=== PATIENT | male | born 1995 | race Caucasian/White ===

== ENCOUNTER 2021-12-27 00:05 | Emergency (ER) | payer BC ==
[2021-12-27 00:13] VITALS: BP 150/88; PULSE 93; RESP 20; TEMP 98.3
--- NOTE | 2021-12-27 00:46 | ED ---
Upper Extremity HPI - General Chief Complaint: Extremity Injury, Upper Stated Complaint: Right Arm Injury Time Seen by Provider: 12/27/21 00:34 Source: patient Mode of arrival: ambulatory Limitations: no limitations - History of Present Illness Initial Comments: This is a pleasant 26-year-old male who presents to emergency department after sustaining an injury to his right wrist and forearm [facility]. Patient has pain which is mainly at the wrist, exacerbated by movement, alleviated by rest, no distal or proximal radiation. No distal paresthesias. Patient denies any other injuries. Injury was splinted on site. Patient denies any other significant past medical history. MD Complaint: Injury to:: right, arm - Related Data Previous Rx's Medication Instructions Recorded Acetaminophen [Tylenol] 500 mg PO Q4-6H PRN #24 tab 12/27/21 Allergies Allergy/AdvReac Type Severity Reaction Status Date / Time No Known Allergies Allergy Verified 12/27/21 00:13 Review of Systems ROS Statement: Those systems with pertinent positive or pertinent negative responses have been documented in the HPI. ROS Other: All systems not noted in ROS Statement are negative. Past Medical History Past Medical History: No Reported History History of Any Multi-Drug Resistant Organisms: None Reported Past Surgical History: No Surgical Hx Reported Past Psychological History: No Psychological Hx Reported Smoking Status: Current every day smoker Past Alcohol Use History: Occasional Past Drug Use History: None Reported General Exam Limitations: no limitations General appearance: alert, in no apparent distress Head exam: Present: atraumatic, normocephalic, normal inspection Eye exam: Present: normal appearance, PERRL, EOMI. Absent: scleral icterus, conjunctival injection, periorbital swelling ENT exam: Present: normal exam, mucous membranes moist Neck exam: Present: normal inspection. Absent: tenderness, meningismus, lymphadenopathy Respiratory exam: Present: normal lung sounds bilaterally. Absent: respiratory distress, wheezes, rales, rhonchi, stridor Cardiovascular Exam: Present: regular rate, normal rhythm, normal heart sounds. Absent: systolic murmur, diastolic murmur, rubs, gallop, clicks GI/Abdominal exam: Present: soft, normal bowel sounds. Absent: distended, tenderness, guarding, rebound, rigid Extremities exam: Present: normal capillary refill Right Upper Arm exam: Present: normal inspection. Absent: tenderness Elbow exam: Present: normal inspection, full ROM. Absent: tenderness Forearm Wrist exam: Present: tenderness, tenderness over anatomical snuff box. Absent: full ROM, swelling, abrasion, laceration, ecchymosis, deformity, crepitus, dislocation, erythema Hand Wrist exam: Present: normal inspection, full ROM. Absent: tenderness, swelling, abrasion Vascular: Absent: vascular compromise, Pallo (Radiology also as are intact. Capillary refill less than 2 seconds. Distal sensation intact. Full range of motion and strength regarding all phalanges, hand. Limited range of motion at the wrist.), normal capillary refill, pulse deficit radial art, pulse deficit ulnar art, pulse deficit brachial art Back exam: Present: normal inspection Neurological exam: Present: alert, oriented X3, CN II-XII intact Psychiatric exam: Present: normal affect, normal mood Skin exam: Present: warm, dry, intact, normal color. Absent: rash Course Vital Signs 12/27/21 00:11 Temperature 98.3 F Pulse Rate 93 Respiratory 20 Rate Blood Pressure 150/88 O2 Sat by Pulse 98 Oximetry Procedures - Orthopedic Splinting/Casting Injury #1 Side: right Upper Extremity Injury Location: wrist Upper Extremity Immobilizer: thumb spica Additional Comments: Distal neurovascular status intact both pre-and post-application. Medical Decision Making - Medical Decision Making Isolated injury at the right wrist. Thumb spica splint applied. Distal neurovascular status intact. Patient counseled on splint care. Patient counseled on signs and symptoms of compartment syndrome. Orthopedic follow-up given. Patient did have tenderness over the anatomical snuffbox raising concern about possible occult scaphoid fracture. I did review these films myself. Patient was told to return to the ER for any signs or symptoms worsen. Told to return immediately if any other problems arise. All questions answered. Treatment plan discussed. Patient in agreement - Radiology Data Radiology results: report reviewed, image reviewed Disposition Clinical Impression: Injury of right wrist Disposition: HOME SELF-CARE Condition: Good Instructions (If sedation given, give patient instructions): Wrist Injury (ED), Splint Care (ED), How to Use a Sling (ED) Additional Instructions: Follow-up with orthopedics as directed. Call tomorrow morning for follow-up appointment. Wear the sling and splint as directed. Leave the splint on until follow-up. Follow-up with your regular physician as directed. Return to the ER immediately if any symptoms worsen, new symptoms arise, or any other problems develop. Use [id number] acetaminophen for pain control. Prescriptions: Acetaminophen [Tylenol] 500 mg PO Q4-6H PRN #24 tab PRN Reason: Pain Is patient prescribed a controlled substance at d/c from ED?: No Referrals: Rosanna Pringle DO [Doctor of Osteopathic Medicine] - 12/31/21 Time of Disposition: 01:33
--- NOTE | 2021-12-27 01:01 | XR ---
EXAMINATION TYPE: XR wrist complete RT DATE OF EXAM: 12/27/2021 COMPARISON: NONE HISTORY: Pain and swelling TECHNIQUE: 4 view FINDINGS: I see no fracture nor dislocation. Joint spaces are normal. There are no pathologic calcifi cations. Carpal bones are intact. IMPRESSION: Negative right wrist exam.
--- NOTE | 2021-12-27 01:09 | XR ---
EXAMINATION TYPE: XR forearm RT DATE OF EXAM: 12/27/2021 COMPARISON: NONE HISTORY: Pain TECHNIQUE: 2 views FINDINGS: I see no fracture nor dislocation. Radius and ulna appear intact. IMPRESSION: Negative right forearm exam.
[2021-12-27] MEDS ORDERED: ACETAMINOPHEN TAB 500 MG TAB PO STA (01:13)
== END 2021-12-27 01:47 | disposition home or self-care (01) ==
LOC: EC 00:05
DX: S69.91XA Unspecified injury of right wrist, hand and finger(s), initial encounter (principal); F17.200 Nicotine dependence, unspecified, uncomplicated; X58.XXXA Exposure to other specified factors, initial encounter
CPT/HCPCS: 29125; 99283